=== PATIENT | male | born 1940 | race Caucasian/White ===

== ENCOUNTER 2019-07-28 14:25 | Outpatient (CLI) | payer MEDICARE, OTHER | END 2019-07-28 23:59 | disposition home or self-care (01) | LOC: ROC 14:25 | PROVIDERS: ATTEND Radiology Radiation Oncology | DX: C02.1 Malignant neoplasm of border of tongue (principal); I10 Essential (primary) hypertension; E03.9 Hypothyroidism, unspecified | CPT/HCPCS: G0463 ==

== ENCOUNTER 2019-07-31 08:55 | Outpatient (CLI) | payer MEDICARE, OTHER | END 2019-07-31 23:59 | disposition home or self-care (01) | LOC: ROC 08:55 | PROVIDERS: ATTEND Radiology Radiation Oncology | DX: C01 Malignant neoplasm of base of tongue (principal) | CPT/HCPCS: G0463 ==

== ENCOUNTER 2019-09-04 15:06 | Day surgery (SDC) | payer MEDICARE, OTHER ==
[~2019-09-04 15:06] MED LIST: CHOL10003 PO; CYAN100T2 PO; GABA600T7 PO; LEVO100T5 PO; LISI-170 PO; MULT-717 PO; PILO5TAB13 PO; UBID60CA2 PO; VISIPAQUE 270 MG/ML, 50ML BOTTLE ONE
== END 2019-09-04 23:59 | disposition home or self-care (01) ==
LOC: RAD 15:06
PROVIDERS: ATTEND Surgery
DX: K94.29 Other complications of gastrostomy (principal); C02.9 Malignant neoplasm of tongue, unspecified; E03.9 Hypothyroidism, unspecified; I10 Essential (primary) hypertension; F17.210 Nicotine dependence, cigarettes, uncomplicated; Z72.89 Other problems related to lifestyle; Z79.899 Other long term (current) drug therapy; Z85.810 Personal history of malignant neoplasm of tongue; Z98.890 Other specified postprocedural states; Z82.49 Family history of ischemic heart disease and other diseases of the circulatory system
CPT/HCPCS: 49450; 75984; C1729; C1769; Q9966